=== PATIENT | female | born 2000 | race African-American/Black ===

== ENCOUNTER 2025-05-03 02:18 | Emergency (ER) | payer BC ==
[~2025-05-03] VITALS: Ht 162.6 cm; Wt 135.2 kg
[2025-05-03 02:21] VITALS: BP 127/77
[2025-05-03 02:51] VITALS: TEMP 98
[2025-05-03] MEDS: ACETAMINOPHEN 500 MG TABLET PO ONE (02:51)
[2025-05-03 03:43] VITALS: BP 127/77; O2SAT 98
== END 2025-05-03 03:44 | disposition home or self-care (01) ==
LOC: ER 02:30
DX: S29.012A Strain of muscle and tendon of back wall of thorax, initial encounter (principal); S39.012A Strain of muscle, fascia and tendon of lower back, initial encounter; S30.0XXA Contusion of lower back and pelvis, initial encounter; S30.11XA Contusion of abdominal wall, initial encounter; E66.01 Morbid (severe) obesity due to excess calories; V89.2XXA Person injured in unspecified motor-vehicle accident, traffic, initial encounter; Y93.89 Activity, other specified; Y92.410 Unspecified street and highway as the place of occurrence of the external cause; Y99.9 Unspecified external cause status; Z68.23 Body mass index [BMI] 23.0-23.9, adult
CPT/HCPCS: 71046; 71120; A4606; A4663; A9150